=== PATIENT | female | born 1995 | race Two or more races ===

== ENCOUNTER 2024-07-10 12:54 | Emergency (ER) | payer BC, SELFPAY ==
[2024-07-10 12:54] VITALS: BMI 32.3
[2024-07-10 13:05] VITALS: BP 124/77; PULSE 60; RESP 18; TEMP 36.6; O2SAT 99
--- NOTE | 2024-07-10 13:07 | XR_ITS ---
Examination: Pelvic ultrasound, transabdominal, complete Technique: Transabdominal ultrasound of the pelvis performed using grayscale imaging Date and time of exam: July 10, 2024 1402 hours INDICATIONS: Pelvic pain nausea vomiting onset today FINDINGS: Uterus 7.7 cm endometrial stripe 0.6 cm No uterine mass or intrauterine gestation Right ovary 2.9 cm arterial flow Left ovary 3.3 cm arterial flow IMPRESSION: Negative study
--- NOTE | 2024-07-10 13:08 | PD.EDRME ---
Rapid Medical Screening Exam RME Arrival date/time: 07/10/24 12:54 29-year-old female presents to the emergency department today for complaint of right-sided pelvic pain and abdominal pain Chief Complaint: Abdominal Pain Vital signs: Vital Signs Temperature 97.9 F 07/10/24 13:05 Pulse Rate 60 07/10/24 13:05 Respiratory Rate 18 07/10/24 13:05 Blood Pressure 124/77 07/10/24 13:05 Pulse Oximetry (%) 99 07/10/24 13:05 Oxygen Delivery Method Room Air 07/10/24 13:05
[2024-07-10 13:33] LABS: Basophils # (Auto) 0.1 Thou/mm3 (0.0-0.2); Basophils % (Auto) 0 % (0-2.5); Eosinophils # (Auto) 0.1 Thou/mm3 (0.0-0.5); Eosinophils % (Auto) 0 % (0-10); Hematocrit 39.2 % (36.0-46.0); Hemoglobin 14.1 g/dL (12.0-16.0); Immature Granulocytes % (Auto) 0 % (0-0); Immature Granulocytes Auto 0.03 Thou/mm3 (0.00-0.00); Lymphocytes # (Auto) 2.2 Thou/mm3 (1.0-4.8); Lymphocytes % (Auto) 16 % (10-50); Mean Corpuscular Hemoglobin 31.5 pg (25.0-35.0); Mean Corpuscular Volume 88 fL (80-100); Monocytes # (Auto) 0.4 Thou/mm3 (0.0-0.8); Monocytes % (Auto) 3 % (0-12); Neutrophils # (Auto) 10.7 Thou/mm3 (1.8-7.7); Neutrophils % (Auto) 80 % (37-80); Nucleated Red Blood Cell % 0 /100 WBC (0); Platelet Count 329 Thou/mm3 (140-440); RDW Standard Deviation 39.8 fL (36.4-46.3); Red Blood Count 4.48 Miln/mm3 (4.00-5.20); White Blood Count 13.5 Thou/mm3 (3.6-11.0)
[2024-07-10 13:44] LABS: Alanine Aminotransferase 30 U/L (10-49); Albumin, Serum 4.7 gm/dL (3.5-5.0); Albumin/Globulin Ratio 1.4 (1.2-2.2); Alkaline Phosphatase 69 U/L (46-116); Anion Gap 11 (7-16); Aspartate Amino Transferase 27 U/L (0-34); BUN/Creatinine Ratio 10 Ratio (12-20); Bilirubin,Total 0.7 mg/dL (0.3-1.2); Blood Urea Nitrogen 8 mg/dL (9-23); Calcium 9.4 mg/dL (8.3-10.6); Calcium (Corrected) 9.4 mg/dL (8.5-10.1); Carbon Dioxide 23.4 mMol/L (20.0-31.0); Chloride 104 mMol/L (98-107); Creatinine (Component) 0.8 mg/dL (0.6-1.3); Estimated Creatinine Clearance 116.7 mL/min (>60); Globulin 3.4 gm/dL (2.3-3.5); Glucose 110 mg/dL (74-106); Lipase 29 U/L (12-53); Osmolality,Calculated 274 (275-295); Potassium 3.8 mMol/L (3.4-5.1); Sodium 138 mMol/L (136-145); Total Protein 8.1 gm/dL (5.7-8.2); eGFR > 60 See Note
[2024-07-10 15:02] LABS: Collection Type, Urine Clean Catch
[2024-07-10 15:13] LABS: HCG Qualitative,Urine Negative
[2024-07-10 15:28] LABS: Bilirubin,Urine Negative (Negative); Blood,Urine 3+ (Negative); Culture Indicated,Urine Contaminated; Glucose, Urine Negative (Negative); Ketones,Urine 1+ (Negative); Leukocyte Esterase,Urine Positive (Negative); Nitrite,Urine Negative (Negative); PH,Urine 6.5 (5.0-7.0); Protein,Urine 2+ (Neg - Trace); RBC,Urine 6836 /hpf (0-3); Specific Gravity,Urine 1.026 (1.001-1.035); Squamous Epithelial Cell,Urine 18 /hpf (0-5); Urobilinogen,Urine Negative mg/dL (0.0-1.0); WBC,Urine 25 /hpf (0-5)
[2024-07-10 15:33] LABS: Clarity,Urine Cloudy (Clear/Hazy); Color,Urine Brown (Lt Yel-Yel)
--- NOTE | 2024-07-10 15:45 | EDNOTE_ITS ---
ED Abdominal Pain RME/HPI General Chief Complaint: Abdominal Pain Stated complaint: RLQ ABD PAIN WITH NAUSEA AND VOMITING Arrival date/time: 07/10/24 12:54 RME / HPI RME / HPI narrative: 07/10/24 12:54 29-year-old female presents to the emergency department today for complaint of right-sided pelvic pain and abdominal pain DR. MARK MAIN ED EVALUATION 29 year old female with no stated medical history presents to the ED for evaluation of abdominal pain beginning this morning. Pain described as aching in sensation that is located most to the right lower quadrant, rating 7/10 in severity. Accompanied by nausea, nonbloody vomiting, chills, sweats, and feeling light headed. Additionally reports this morning she had a small bowel movement that was hard. Patient mentioned she is currently on Phentermine and had alcohol yesterday. States she is unsure if the alcohol is contributing to her symptoms. Denies fevers or sick contacts with similar symptoms. Denies pelvic pain or vaginal bleeding. Denies chest pain, cough, shortness of breath. Denies dysuria, urinary frequency and urgency. Related Data Home Medications ?Medication ?Instructions ?Recorded ?Confirmed prenat.vits,sona,[id number] 1 tab PO QDAY 08/24/21 08/24/21 Previous Rx's ?Medication ?Instructions ?Recorded docusate sodium 100 mg capsule 100 mg PO BID #60 caps 08/24/21 (Colace) ibuprofen 600 mg tablet 600 mg PO Q6H PRN pain #90 t abs 08/24/21 lanolin 50 % topical ointment 1 applic topical TID PRN skin 08/24/21 irritation #15 tubes Allergies Allergy/AdvReac Type Severity Reaction Status Date / Time No Known Allergies Allergy Verified 07/10/24 12:56 Review of Systems Review of Systems Narrative Review of Systems: GEN: No fever, +chills, no weight loss, +feeling light headed EYES: No discharge, no visual changes, no pain HEENT: No ear pain, no congestion, no sore throat PULM: No shortness of breath, no cough, no congestion CV: No chest pain, no dyspnea on exertion, no palpitations GI: +N/V, no diarrhea, +pain, no constipation : No frequency, no urgency, no dysuria MUSC/SKEL: No joint pain, no back pain SKIN: No rash PSYCH: No hallucinations, no depression HEME/LYMPH: No easy bleeding or bruising tendencies NEURO: No weakness, no headache Past Medical History Past Medical History NEUROLOGIC: Negative Neurological Disorders CARDIAC: Negative Cardiac Disorders GASTROINTESTINAL: Negative Gastrointestinal Disorders GENITOURINARY: Negative Genitourinary Disorders or Renal Disease MUSCULOSKELETAL: Negative Musculoskeletal Disorders ENDOCRINE: Negative Endocrine Disorders OTHER HISTORY: Positive Chicken Pox Family History FAMILY HISTORY: Negative Family Psychiatric Problems, Family Respiratory Disorders, Family Cardiac Disorders, Family Gastrointestinal Problems, Family Cancer, Family Surgery or Family Anesthesia Reaction Surgical History SURGICAL: Negative Section Social History SMOKING STATUS: Never smoker SECOND HAND EXPOSURE: No ED Exam Narrative Physical exam: GENERAL APPEARANCE: alert and oriented x 4, well-developed, well-nourished, no acute distress HEENT: Normocephalic, atraumatic; pupils equal, round, reactive to light; EOMI; mucous membranes pink, moist; oropharynx clear NECK: Supple LUNGS: CTABL; no wheezes, no rales, no rhonchi HEART: Regular rate, regular rhythm; normal S1, S2; no murmurs ABDOMEN: non distended; normal BS; soft, no tenderness, no guarding, no rebound; no masses, no organomegaly, no hernia BACK: no CVA tenderness EXTREMITIES: atraumatic; no edema NEUROLOGIC: awake; alert and oriented x4; cranial nerves II-XII grossly intact; no focal sensory or motor deficits PSYCHIATRIC: appropriate mood and affect SKIN: warm, dry, normal color; no rashes Course Quality Measures none Orders Category Date Time Status CT Screening NOW Care 07/10/24 17:59 Active Insert IV NOW Care 07/10/24 15:[address] abdomen pelvis w con Stat Exams 07/10/24 17:59 Ordered US pelvic complete Stat Exams 07/10/24 13:07 Completed CBC Stat Lab 07/10/24 13:15 Completed CMP [Comprehensive Metabolic Panel] Stat Lab 07/10/24 13:15 Completed HCG Qualitative,Urine Stat Lab 07/10/24 14:54 Completed Lactate (Lactic Acid) Stat Lab 07/10/24 15:55 Completed Lipase Stat Lab 07/10/24 13:15 Completed UA, C/S IF [Urinalysis, C/S if Indicated] Stat Lab 07/10/24 14:54 Completed Morphine Inj Med 07/10/24 15:46 Discontinued 5 mg IVP X1 ONE Morphine Inj Med 07/10/24 17:59 Discontinued 5 mg IVP X1 ONE Ondansetron Inj [Zofran Inj] Med 07/10/24 15:46 Discontinued 4 mg IVP X1 ONE Ondansetron Inj [Zofran Inj] Med 07/10/24 17:59 Discontinued 4 mg IVP X1 ONE Ringers Lactated 1000 ml [Lactated Ringers] 1,000 ml Med 07/10/24 15:46 Discontinued IV 999 mls/hr Sodium Chloride 0.9% 1000 ml [Ns] 1,000 ml Med 07/10/24 15:46 Discontinued IV 999 mls/hr Sodium Chloride 0.9% 1000 ml [Ns] 1,000 ml Med 07/10/24 15:46 Discontinued IV 999 mls/hr Sodium Chloride 0.9% 1000 ml [Ns] 1,000 ml Med 07/10/24 15:46 Discontinued IV 999 mls/hr Vital Signs Vital signs: Vital Signs Temperature 97.9 F 07/10/24 13:05 Pulse Rate 60 07/10/24 13:05 Respiratory Rate 18 07/10/24 13:05 Blood Pressure 124/77 07/10/24 13:05 Pulse Oximetry (%) 99 07/10/24 13:05 Oxygen Delivery Method Room Air 07/10/24 13:05 Pulse ox is 99% on room air which is adequate. Abdominal Pain MDM MDM Narrative MDM Narrative:: Leslie Pearson am scribing for and in the presence of Dr. Mark. 1758: On reassessment after IV fluids and Morphine, patient is still complaining of abdominal pain. Will order CT abdomen. 1800: Patient signed out to Dr. Phipps pending CT and final disposition. Patient data External records reviewed:: [facility] previous records (I reviewed H&P on 08/24/2021 ) Clinical information provided by:: patient Social determinants that could affect healthcare access:: none Patient has the following chronic illnesses:: No chronic medical hx reported How is presenting disease/condition affected by chronic disease/condition?: no chronic disease Evaluation data The following diagnostics were reviewed and interpreted by me:: lab results and radiology exam(s) Lab and/or radiology exams considered but not ordered:: None Interpretation Summary: Ordering Physician: Adela CASTANON)Jose Antonio NP Date of Service: 07/10/24 Procedure(s): US pelvic complete Accession Number(s): [id number] cc: Adela (CHALINO),Jose Antonio ALLRED; Keven Murray MD; Oskar Houston MD~ Examination: Pelvic ultrasound, transabdominal, complete Technique: Transabdominal ultrasound of the pelvis performed using grayscale imaging Date and time of exam: July 10, 2024 1402 hours INDICATIONS: Pelvic pain nausea vomiting onset today FINDINGS: Uterus 7.7 cm endometrial stripe 0.6 cm No uterine mass or intrauterine gestation Right ovary 2.9 cm arterial flow Left ovary 3.3 cm arterial flow IMPRESSION: Negative study Dictated By: Keven Murray MD Signed By: <Electronically signed by Keven Murray MD in OV> 07/10/24 1436 Medications / Prescriptions Medications or Prescriptions considered but not ordered:: None Medication administrations:: Medication Administration History Discontinued Medications Lactated Ringer's (Lactated Ringers) 1,000 mls @ 999 mls/hr IV .Q1H1M ONE Stop: 07/10/24 16:46 Last Admin: 07/10/24 16:12 Dose: Not Given Documented By: TM Non-Admin Reason: Discontinued Sodium Chloride (Ns) 1,000 mls @ 999 mls/hr IV .Q1H1M ONE Stop: 07/10/24 16:46 Last Admin: 07/10/24 16:12 Dose: Not Given Documented By: TM Non-Admin Reason: Discontinued Sodium Chloride (Ns) 1,000 mls @ 999 mls/hr IV .Q1H1M ONE Stop: 07/10/24 16:46 Last Infusion: 07/10/24 17:19 Dose: Infused Documented By: Admin: 07/10/24 16:18 Dose: 999 mls/hr Documented By: TM Sodium Chloride (Ns) 1,000 mls @ 999 mls/hr IV .Q1H1M ONE Stop: 07/10/24 16:46 Last Infusion: 07/10/24 17:19 Dose: Infused Documented By: Admin: 07/10/24 16:18 Dose: 999 mls/hr Documented By: TM Morphine Sulfate (Morphine Sulf Inj 10 Mg/Ml Vial) 5 mg IVP X1 ONE Stop: 07/10/24 15:47 Last Admin: 07/10/24 17:21 Dose: 5 mg Documented By: TM Comments: HR 64 BP 145/93 Morphine Sulfate (Morphine Sulf Inj 10 Mg/Ml Vial) 5 mg IVP X1 ONE Stop: 07/10/24 18:00 Ondansetron HCl (Ondansetron Inj 2 Mg/Ml Inj 2 Ml) 4 mg IVP X1 ONE Stop: 07/10/24 15:47 Last Admin: 07/10/24 17:23 Dose: 4 mg Documented By: IKE Ondansetron HCl (Ondansetron Inj 2 Mg/Ml Inj 2 Ml) 4 mg IVP X1 ONE Stop: 07/10/24 18:00 See above Consultations Consultation(s) initiated? (list below): No Diagnosis Differential diagnosis abdominal pain: abdominal pain, acute appendicitis, calculus of kidney, constipation and endometriosis Most likely diagnosis given after review of the tests above:: Abdominal pain Nausea and vomiting Admission Indicated Admission indicated?: not indicated Explain why admission is indicated or not indicated:: Patient signed out to Dr. Phipps. Admission Request Was there a request for admission?: No Disposition Plan Disposition Plan: other (specify) (signed out to Dr. Phipps) Discharge Plan Prescriptions/Referrals Prescriptions/Med Rec: No Action prenat.vits,sona,[id number] Tablet 1 tab PO QDAY docusate sodium [Colace] 100 mg capsule 100 mg PO BID Qty: 60 0RF ibuprofen 600 mg tablet 600 mg PO Q6H PRN (Reason: pain) Qty: 90 0RF lanolin 50 % ointment 1 applic topical TID PRN (Reason: skin irritation) Qty: 15 0RF Referrals: Oskar Houston MD [Primary Care Provider] - In 1 week Patient/Caregiver Discharge Instructions Print Language: Vietnamese
[2024-07-10 16:01] LABS: Lactate (Lactic Acid) 1.3 mMol/L (0.4-2.0)
[2024-07-10] MEDS: SODIUM CHLORIDE 0.9% 1000 ML 1,000 ML 999 ML IV ×2 (16:18)
--- NOTE | 2024-07-10 16:28 | PC.NURSE ---
PT REFUSED PAIN MEDICATION AND NAUSEA MEDICATION, STATES SHE DOES NOT HAVE PAIN CURRENTLY, AND NO NAUSEA AT THIS TIME. PTS VSS HAS BOLUS INFUSING. CALL [facility] IN REACH, WILL CONT W/POC
[2024-07-10 16:41] VITALS: BP 120/70; PULSE 60; RESP 19; TEMP 37.1; O2SAT 100
[2024-07-10] MEDS: MORPHINE SULF INJ 10 MG/ML VIAL 5 MG IVP ×2 (17:21→18:11)
[2024-07-10] MEDS: ONDANSETRON INJ 2 MG/ML INJ 2 ML 4 MG IVP ×2 (17:23→18:12)
--- NOTE | 2024-07-10 17:59 | XR_ITS ---
Examination: CT abdomen with intravenous contrast CT pelvis with intravenous contrast 2-D coronal reconstructions 2-D sagittal reconstructions Date and time of exam:July 10, 2024 at 1904 hours INDICATIONS: Right lower abdominal pain onset today. CTDI: vol (mGy) 11 DLP: (mGycm) 681 Technique: Multiple axial sections of the abdomen and pelvis have been obtained. 64 slice high-resolution scanner used. 3 mm axial sections have been obtained, post intravenous injection 60 cc of Isovue 370 2-D sagittal, coronal reconstructions obtained. Low dose protocols were performed. One or more of the following dose reduction techniques were used; automated exposure control, adjustment of the mA and/or KV according to patient size, use of iterative reconstruction technique. Findings: No focal liver or splenic lesions Suspicious for tiny gallstones. No pancreatic mass Mild right hydronephrosis secondary to a 4 mm proximal right ureteral calculus Aorta normal size 10 mm fat-containing umbilical hernia No pericecal inflammatory change Normal appendix No pelvic mass Bilateral intact IMPRESSION: Cholelithiasis, negative for cholecystitis Mild right hydronephrosis secondary to 4 mm proximal right ureteral calculus Normal appendix
--- NOTE | 2024-07-10 17:59 | PC.NURSE ---
PT RESTING W/EYES CLOSED, EVEN RISE AND FALL OF CHEST, CALLED AT THIS TIME, THIS RN TOOK PHONE INTO PT, WOKE HER UP TO SPEAK TO HER
--- NOTE | 2024-07-10 18:27 | PD.EDADDENDU ---
Emergency Room Addendum <Elsie Vick - Last Filed: 07/10/24 19:57> Addendum Narrative: I took over the care from previous shift physician at 6 PM on 07/10/2024. See previous notes for complete H & P and ED course. I reviewed all diagnostic test results. My review of the CT report is Cholelithiasis, negative for cholecystitis. Mild right hydronephrosis secondary to 4 mm proximal right ureteral calculus. Normal appendix. My review of the Pelvis US report is NAD. Blood tests and urine tests Diagnoses include: Right kidney stone. Treatment here included Ringer's Lactated, Morphine, Zofran, IV fluid, Flomax. Based on my best medical judgment, made decision no further evaluation or treatment indicated at this time. Patient understands and agrees to the discharge instructions customized and printed, see below. Discharge Instructions from Dr. Phipps: --Your symptoms are due to a 4 mm right kidney stone. It is outside the kidney. It is trying to pass into your bladder. --Increase oral fluid to flush your kidneys. Maintain clear urine. if it's dark or yellow then increase oral fluid. If you don't do this, you won't pass it. --Take Flomax to help decrease spasms to increase the chance of passing it. --Take Zofran as needed for nausea or vomiting. --Take Ketorolac/Toradol for pain control. And Tylenol with Codeine. If you are in severe pain, you won't pass it. --Strain your urine so you can catch the stone when you pass it. --See a private doctor on 07/13/2024 for recheck. Take the stone with you for analysis because certain stones can be prevented. If you didn't pass it, ask for referral to see urologist. Who will take the stone out for you. Unfortunately, this hospital doesn't have urologist who can help you. Ask to review all test results and official radiology reports, to make sure you receive all necessary follow-ups and monitoring. --Seek immediate medical care with fever over 100.4, persistent vomiting despite Zofran, intolerable pain, or with any concerns. Scot Phipps MD <Scot Phipps MD - Last Filed: 07/10/24 20:00> Addendum Narrative: I took over the care from previous shift physician, Dr. LACKEY, at 6 PM on 07/10/2024. See previous notes for complete H & P and ED course. I was asked to reviewed the abdominal CT report which showed right ureteral stone. Diagnoses include: Right kidney stone. Treatment here included Ringer's Lactated, Morphine, Zofran, IV fluid, Flomax, and Toradol. She felt much better. Recommended outpatient treatment. Based on my best medical judgment, made decision no further evaluation or treatment indicated at this time. Patient understands and agrees to the discharge instructions customized and printed, see below. Discharge Instructions from Dr. Phipps: --Your symptoms are due to a 4 mm right kidney stone. It is outside the kidney. It is trying to pass into your bladder. --Increase oral fluid to flush your kidneys. Maintain clear urine. if it's dark or yellow then increase oral fluid. If you don't do this, you won't pass it. --Take Flomax to help decrease spasms to increase the chance of passing it. --Take Zofran as needed for nausea or vomiting. --Take Ketorolac/Toradol for pain control. And Tylenol with Codeine. If you are in severe pain, you won't pass it. --Strain your urine so you can catch the stone when you pass it. --See a private doctor on 07/13/2024 for recheck. Take the stone with you for analysis because certain stones can be prevented. If you didn't pass it, ask for referral to see urologist. Who will take the stone out for you. Unfortunately, this hospital doesn't have urologist who can help you. Ask to review all test results and official radiology reports, to make sure you receive all necessary follow-ups and monitoring. --Seek immediate medical care with fever over 100.4, persistent vomiting despite Zofran, intolerable pain, or with any concerns. Scot Phipps MD
[2024-07-10] MEDS: TAMSULOSIN HCL 0.4 MG CAPSULE PO (20:04)
[2024-07-10] MEDS: KETOROLAC INJ 30 MG/ML VIAL IVP (20:05)
[2024-07-10 20:08] VITALS: BP 135/76; PULSE 72; RESP 16; TEMP 36.8; O2SAT 98
== END 2024-07-10 20:10 | disposition home or self-care (01) ==
PROVIDERS: Emergency Medicine; Nurse Practitioner Primary Care; Emergency Provider Emergency Medicine; PCP Family Medicine
DX: K80.20 Calculus of gallbladder without cholecystitis without obstruction (principal); N13.2 Hydronephrosis with renal and ureteral calculous obstruction; R10.2 Pelvic and perineal pain
CPT/HCPCS: 36415; 74177; 76856; 80053; 81001; 81025; 83605; 83690; 83735; 85025; 96361; 96374; 96375; 99285; A4649; J1885; J2270; J2405; J7030; Q9967; A9270

== ENCOUNTER → 2024-08-19 | Outpatient (CLI) | payer BC, SELFPAY ==
[2024-08-19 10:41] LABS: Vitamin D 25 Hydroxy Total 31.6 ng/mL (7.3-40.2)
[2024-08-19 10:44] LABS: Alanine Aminotransferase 36 U/L (10-49); Albumin, Serum 4.1 gm/dL (3.5-5.0); Albumin/Globulin Ratio 1.4 (1.2-2.2); Alkaline Phosphatase 64 U/L (46-116); Anion Gap 10 (7-16); Aspartate Amino Transferase 24 U/L (0-34); BUN/Creatinine Ratio 10 Ratio (12-20); Bilirubin,Total 0.7 mg/dL (0.3-1.2); Blood Urea Nitrogen 6 mg/dL (9-23); Calcium 8.6 mg/dL (8.3-10.6); Calcium (Corrected) 8.6 mg/dL (8.5-10.1); Carbon Dioxide 25.5 mMol/L (20.0-31.0); Cardiac Risk Estimate 2.9 RATIO (3.7-5.6); Chloride 108 mMol/L (98-107); Cholesterol 169 mg/dL (132-200); Creatinine (Component) 0.6 mg/dL (0.6-1.3); Free T4 (Free Thyroxine) 1.21 ng/dL (0.89-1.76); Globulin 3.0 gm/dL (2.3-3.5); Glucose 90 mg/dL (74-106); HDL Cholesterol 58 mg/dL (40-60); LDL Cholesterol,Calculated 87 mg/dL (0-130); Osmolality,Calculated 282 (275-295); Potassium 3.8 mMol/L (3.4-5.1); Sodium 143 mMol/L (136-145); Thyroid Stimulating Hormone 1.00 uIU/mL (0.55-4.78); Total Protein 7.1 gm/dL (5.7-8.2); Triglycerides 122 mg/dL (30-150); eGFR > 60 See Note
== END | disposition home or self-care (01) ==
LOC: COPL 09:20
PROVIDERS: PCP Family Medicine; Referring Provider Family Medicine; Visit Provider Family Medicine
DX: E55.9 Vitamin D deficiency, unspecified (principal); E03.2 Hypothyroidism due to medicaments and other exogenous substances; E78.1 Pure hyperglyceridemia; Z13.1 Encounter for screening for diabetes mellitus
CPT/HCPCS: 36415; 80053; 80061; 82306; 84439; 84443